=== PATIENT | female | born 1960 | race Caucasian/White ===

== ENCOUNTER → 2018-04-23 | Emergency (ER) | END | disposition home or self-care (01) ==

== ENCOUNTER 2019-03-09 06:31 | Emergency (ER) | payer SELFPAY ==
[~2019-03-09] VITALS: Ht 152.4 cm; Wt 66.5 kg
[~2019-03-09 06:31] MED LIST: HYDR25TA6 PO
[2019-03-09 06:35] VITALS: Ht 152.4 cm; Wt 66.5 kg
[2019-03-09] MEDS ORDERED: SOD CHLORIDE 0.9% 500 ML IV STA (06:41)
[2019-03-09] MEDS ORDERED: ENALAPRILAT 1.25 MG INJ IV ONE (07:00)
[2019-03-09] MEDS ORDERED: PHENYLephrine 0.25% 15 ML NAS SPRAY NASAL ONE (07:00)
[2019-03-09 08:36] VITALS: BP 156/87; PULSE 87; RESP 20
== END 2019-03-09 08:37 | disposition home or self-care (01) ==
LOC: E/R 06:31
DX: R04.0 Epistaxis (principal); I10 Essential (primary) hypertension; R40.2142 Coma scale, eyes open, spontaneous, at arrival to emergency department; R40.2362 Coma scale, best motor response, obeys commands, at arrival to emergency department; R40.2252 Coma scale, best verbal response, oriented, at arrival to emergency department
CPT/HCPCS: 36415; 80048; 85025; 96374; 99284; J7040